=== PATIENT | male | born 1970 | race American Indian/Alaskan Native ===

== ENCOUNTER 2018-09-25 22:43 | Emergency (ER) | payer OTHER ==
[2018-09-25] MEDS ORDERED: NACL 0.9% 1000 ML 1,000 ML IV ONE (23:06)
[2018-09-25] MEDS ORDERED: XYLOCAINE 1%/ EPI 1:100,000 INFILTRATI ONE (23:07)
[2018-09-25 23:32] LABS: Basophils # (Auto) 0.1 K/mm3 (0.0-0.1); Basophils % (Auto) 0.8 % (0.0-1.8); Eosinophils # (Auto) 0.1 K/mm3 (0.0-0.4); Eosinophils % (Auto) 0.9 % (0.0-4.3); Hematocrit 39.8 % (35.5-45.6); Hemoglobin 14.2 gm/dl (11.8-15.2); Lymphocytes # (Auto) 3.5 K/mm3 (1.2-5.4); Lymphocytes % (Auto) 49.1 % (13.4-35.0); Mean Corpuscular HGB Conc 36 % (32-34); Mean Corpuscular Volume 100 fl (84-94); Monocytes # (Auto) 0.7 K/mm3 (0.0-0.8); Monocytes % (Auto) 9.2 % (0.0-7.3); Platelet Count 300 K/mm3 (140-440); Red Blood Count 3.97 M/mm3 (3.65-5.03); Red Cell Distribution Width 13.7 % (13.2-15.2)
[2018-09-25 23:46] LABS: Alanine Aminotransferase 16 units/L (7-56); Albumin 4.4 g/dL (3.9-5); BUN/Creatinine Ratio 16; Blood Urea Nitrogen 21 mg/dL (9-20); Calcium 8.9 mg/dL (8.4-10.2); Hemolysis Index 19
[2018-09-26] MEDS ORDERED: NACL 0.9% 500 ML IR ONE (00:19)
--- NOTE | 2018-09-26 00:26 | Cat Scan Report ---
FINAL REPORT EXAM: CT HEAD/BRAIN WO CON HISTORY: syncope COMPARISON: None available. TECHNIQUE: Axial images obtained skull base through vertex. FINDINGS: No acute intracranial hemorrhage, midline shift or pathologic extra axial fluid collection. Ventricle s and cisterns are normal in size and configuration for the patient's age. Nye-white differentiation preserved. Calvarium grossly intact. Visualized ocular globes are grossly unremarkable. Mild mucosal thickening of the ethmoid air cells. Mastoid air cells are clear. IMPRESSION: No grossly acute intracranial abnormality.
--- NOTE | 2018-09-26 01:39 | Emergency Department Report ---
Blank Doc - Documentation Documentation: Laceration repair note Chin laceration, irregular deep 3 cm. Wound prepped and draped in sterile fashion. Anesthesia achieved with 2% lidocaine with epinephrine. Subcutaneous stitches placed with 4-0 Monocryl 2 and wound closed with 4-0 proline simple interrupted 6. No complications. Good wound approximation and closure. Hemostasis achieved and estimated blood loss less than 2 mL. Procedure tolerated well with no complications.
--- NOTE | 2018-09-26 01:57 | Emergency Department Report ---
ED Syncope HPI - General Chief Complaint: Syncope Stated Complaint: PASSED OUT TWICE Time Seen by Provider: 09/25/18 23:05 Source: patient - History of Present Illness Initial Comments: Patient is a 48-year-old male with a past history of hypertension and HIV positive status who is presenting status post a syncopal episode. Patient states that he felt fine earlier today he was actually at a friend's house and their garage having a few drinks and playing cards when he became very dizzy. Patient got up and walked to his home and passed out twice once he got to his home. The patient suffered a laceration to the chin. There is no active bleeding at this time. Patient denies any chest pain shortness of breath fevers or chills. Patient states he has chronic diarrhea for the last several months but denies any abdominal pain. - Related Data Allergies/Adverse Reactions: Allergies Penicillins Allergy (Verified 07/01/14 12:23) Shortness of Breath Home Medications: Ambulatory Orders Azithromycin [Zithromax Z-ADDY] 250 mg PO DAILY #6 tablet 07/01/14 HYDROcodone/APAP 5-325 [[place] 5/325] 1 each PO Q6HR PRN #20 tablet 07/01/14 Ibuprofen [Motrin] 800 mg PO Q8H PRN #30 tablet 07/01/14 ED Review of Systems ROS: Stated complaint: PASSED OUT TWICE Other details as noted in HPI Comment: All other systems reviewed and negative ED Past Medical Hx - Past Medical History Previous Medical History?: Yes Hx Hypertension: Yes Hx HIV: Yes Additional medical history: meningitis. high cholestrol - Surgical History Past Surgical History?: Yes Additional Surgical History: rectal polyps - Social History Smoking Status: Current Every Day Smoker Substance Use Type: Alcohol, Cocaine, Marijuana - Medications Home Medications: Home Medications Medication Instructions Recorded Confirmed Last Taken Type Azithromycin [Zithromax Z-ADDY] 250 mg PO DAILY #6 tablet 07/01/14 Unknown Rx HYDROcodone/APAP 5-325 [[place] 1 each PO Q6HR PRN #20 tablet 07/01/14 Unknown Rx 5/325] Ibuprofen [Motrin] 800 mg PO Q8H PRN #30 tablet 07/01/14 Unknown Rx ED Physical Exam - General Limitations: No Limitations General appearance: alert, in no apparent distress - Head Head exam: Present: atraumatic, normocephalic - Eye Eye exam: Present: normal appearance - ENT ENT exam: Present: mucous membranes moist - Neck Neck exam: Present: normal inspection - Respiratory Respiratory exam: Present: normal lung sounds bilaterally. Absent: respiratory distress, wheezes, rales, rhonchi - Cardiovascular Cardiovascular Exam: Present: regular rate, normal rhythm. Absent: systolic murmur, diastolic murmur, rubs, gallop - GI/Abdominal GI/Abdominal exam: Present: soft, normal bowel sounds. Absent: distended, tenderness, guarding, rebound - Rectal Rectal exam: Present: deferred - Extremities Exam Extremities exam: Present: normal inspection - Back Exam Back exam: Present: normal inspection - Neurological Exam Neurological exam: Present: alert, oriented X3 - Psychiatric Psychiatric exam: Present: normal affect, normal mood - Skin Skin exam: Present: warm, dry, intact, normal color, other (he has a 2 cm laceration of the chin.). Absent: rash ED Course Vital Signs 09/25/18 09/25/18 09/26/18 22:52 23:15 00:15 Temperature 97.9 F Pulse Rate 67 67 90 Respiratory 16 22 17 Rate Blood Pressure 57/34 108/74 116/77 O2 Sat by Pulse 97 97 99 Oximetry ED Medical Decision Making - Lab Data Result diagrams: 09/25/18 23:09 09/25/18 23:09 Lab Results 09/25/18 09/25/18 Range/Units 23:09 23:09 WBC 7.1 (4.5-11.0) K/mm3 RBC 3.97 (3.65-5.03) M/mm3 Hgb 14.2 (11.8-15.2) gm/dl Hct 39.8 (35.5-45.6) % MCV 100 H (84-94) fl MCH 36 H (28-32) pg MCHC 36 H (32-34) % RDW 13.7 (13.2-15.2) % Plt Count 300 (140-440) K/mm3 Lymph % (Auto) 49.1 H (13.4-35.0) % [place] % (Auto) 9.2 H (0.0-7.3) % Eos % (Auto) 0.9 (0.0-4.3) % Baso % (Auto) 0.8 (0.0-1.8) % Lymph # 3.5 (1.2-5.4) K/mm3 [place] # 0.7 (0.0-0.8) K/mm3 Eos # 0.1 (0.0-0.4) K/mm3 Baso # 0.1 (0.0-0.1) K/mm3 Seg Neutrophils % 40.0 (40.0-70.0) % Seg Neutrophils # 2.8 (1.8-7.7) K/mm3 Sodium 137 (137-145) mmol/L Potassium 3.5 L (3.6-5.0) mmol/L Chloride 98.4 (98-107) mmol/L Carbon Dioxide 25 (22-30) mmol/L Anion Gap 17 mmol/L BUN 21 H (9-20) mg/dL Creatinine 1.3 (0.8-1.5) mg/dL Estimated GFR > 60 ml/min BUN/Creatinine Ratio 16 % Glucose 126 H (75-100) mg/dL Calcium 8.9 (8.4-10.2) mg/dL Total Bilirubin < 0.20 (0.1-1.2) mg/dL AST 17 (5-40) units/L ALT 16 (7-56) units/L Alkaline Phosphatase 75 (35-129) units/L Troponin T < 0.010 (0.00-0.029) ng/mL Total Protein 7.2 (6.3-8.2) g/dL Albumin 4.4 (3.9-5) g/dL Albumin/Globulin Ratio 1.6 % - Medical Decision Making Patient's blood pressure responded very nicely to IV fluids. After 2 L of IV fluids patient is not orthostatic. Patient states he feels much better than when he arrived. Patient blood pressures within normal limits. Patient likely slowly became dehydrated secondary to his chronic diarrhea. Patient also has had some alcohol which most likely further exacerbated his condition. please see the procedure note by Mr Mcallister regarding the laceration repair Critical care attestation.: If time is entered above; I have spent that time in minutes in the direct care of this critically ill patient, excluding procedure time. ED Disposition Clinical Impression: Dehydration, Orthostatic hypotension Syncope Qualifiers: Syncope type: unspecified Qualified Code(s): R55 - Syncope and collapse Chin laceration Qualifiers: Encounter type: initial encounter Qualified Code(s): S01.81XA - Laceration without foreign body of other part of head, initial encounter Disposition: DC-01 TO HOME OR SELFCARE Is pt being admited?: No Does the pt Need Aspirin: No Condition: Stable Instructions: Syncope (ED), Chronic Diarrhea (ED), Dehydration (ED), Suture Care (ED), Laceration (ED) Additional Instructions: Please have your stitches removed in approximately 7 days. Referrals: PRIMARY CARE,MD [Primary Care Provider] - 3-5 Days Time of Disposition: 01:58
[2018-09-26 02:22] VITALS: BP 124/77
== END 2018-09-26 02:27 | disposition home or self-care (01) ==
LOC: ED 22:43
DX: S01.81XA Laceration without foreign body of other part of head, initial encounter (principal); E86.0 Dehydration; E78.00 Pure hypercholesterolemia, unspecified; I95.1 Orthostatic hypotension; Z88.0 Allergy status to penicillin; Z21 Asymptomatic human immunodeficiency virus [HIV] infection status; F17.200 Nicotine dependence, unspecified, uncomplicated; W18.39XA Other fall on same level, initial encounter; Y93.89 Activity, other specified; Y92.098 Other place in other non-institutional residence as the place of occurrence of the external cause; Y99.8 Other external cause status
CPT/HCPCS: 12011; 36415; 70450; 80053; 84484; 85025; 93005; 93010; 96360; 99284; J7030

== ENCOUNTER 2018-10-04 11:04 | Emergency (ER) | payer OTHER ==
--- NOTE | 2018-10-04 11:34 | Emergency Department Report ---
Suture/Staple Removal - HPI Chief Complaint: Laceration/Recheck/Suture Stated Complaint: STITCHS REMOVED Time Seen by Provider: 10/04/18 11:28 When Sutures or [place] Placed: 8-10 Days Ago Wound Location: chin ED Review of Systems ROS: Stated complaint: STITCHS REMOVED Other details as noted in HPI Constitutional: denies: chills, fever Eyes: denies: eye pain, eye discharge, vision change ENT: denies: ear pain, throat pain Respiratory: denies: cough, shortness of breath, wheezing Cardiovascular: denies: chest pain, palpitations Endocrine: no symptoms reported Gastrointestinal: denies: abdominal pain, nausea, diarrhea Genitourinary: denies: urgency, dysuria Musculoskeletal: denies: back pain, joint swelling, arthralgia Skin: denies: rash, lesions Neurological: denies: headache, weakness, paresthesias Psychiatric: denies: anxiety, depression Hematological/Lymphatic: denies: easy bleeding, easy bruising ED Past Medical Hx - Past Medical History Hx Hypertension: Yes Hx HIV: Yes Additional medical history: meningitis. high cholestrol - Surgical History Additional Surgical History: rectal polyps - Social History Smoking Status: Current Every Day Smoker Substance Use Type: None - Medications Home Medications: Home Medications Medication Instructions Recorded Confirmed Last Taken Type Azithromycin [Zithromax Z-ADDY] 250 mg PO DAILY #6 tablet 07/01/14 Unknown Rx HYDROcodone/APAP 5-325 [[place] 1 each PO Q6HR PRN #20 tablet 07/01/14 Unknown Rx 5/325] Ibuprofen [Motrin] 800 mg PO Q8H PRN #30 tablet 07/01/14 Unknown Rx Suture Removal Exam - Exam General: Vital signs noted. No distress. Alert and acting appropriately. Wound: No Pathologic Erythema, No Tenderness, No Drainage, No Pus, No Wound Dehiscence Other Systems: All other systems reviewed and are unremarkable. ED Course Vital Signs 10/04/18 11:12 Temperature 97.4 F L Pulse Rate 92 H Respiratory 20 Rate Blood Pressure 147/93 O2 Sat by Pulse 97 Oximetry - Reevaluation(s) Reevaluation #1: 10/04/18 11:30 Patient is speaking in full sentences with no signs of distress noted. ED Recheck MDM - Medical Decision Making This is a 48-year-old male that presents with suture removal. She is stable and was examined by me. Total of 6 sutures has been removed and patient tolerated well. No signs of wound dehiscence, drainage, or cellulitis. Patient was referred to Follow-up with a primary care doctor in 3-5 days or if symptoms worsen and continue return to emergency room as soon as possible. At time of discharge, the patient does not seem toxic or ill in appearance. No acute signs of distress noted. Patient agrees to discharge treatment plan of care. No further questions noted by the patient. Critical care attestation.: If time is entered above; I have spent that time in minutes in the direct care of this critically ill patient, excluding procedure time. ED Disposition Clinical Impression: Visit for suture removal Disposition: TO HOME OR SELFCARE Is pt being admited?: No Does the pt Need Aspirin: No Condition: Stable Instructions: Suture Removal (ED) Additional Instructions: Follow-up with a primary care doctor in 3-5 days or if symptoms worsen and continue return to emergency room as soon as possible. Continue taking medications as prescribed to you during your initial visit. Referrals: PRIMARY MD PAULA [Referring] - 3-5 Days YAZMIN BARROW MD [Staff Physician] - 3-5 Days [facility] [Outside] - 3-5 Days Forms: Work/School Release Form(ED)
== END 2018-10-04 11:46 | disposition home or self-care (01) ==
LOC: ED 11:04